=== PATIENT | male | born 1955 | race Caucasian/White ===

== ENCOUNTER 2019-09-24 11:04 | Emergency (ER) | payer OTHER ==
[~2019-09-24] VITALS: Ht 167.6 cm; Wt 78.5 kg
[2019-09-24 11:15] VITALS: BP 112/67
--- NOTE | 2019-09-24 11:18 | NUR ---
PT TAKEN TO BED 2.
--- NOTE | 2019-09-24 11:38 | NUR ---
C/O COUGH CONGESTION FEVER AND BODYACHES X 1 WEEK
[2019-09-24] MEDS ORDERED: AMLO10TA PO (12:20)
[2019-09-24] MEDS ORDERED: LIB5 PO (12:20)
[2019-09-24] MEDS ORDERED: OLME40TA11 PO (12:20)
[2019-09-24] MEDS ORDERED: ATOR20TA PO (12:20)
--- NOTE | 2019-09-24 12:29 | NUR ---
INFLUENZA SWAB COLLECTED AND HANDED TO JACK
[2019-09-24] MEDS ORDERED: AMOXIL/CLAVULANATE 875/125 MG 1 TAB PO ONE (13:25)
[2019-09-24 13:38] VITALS: BP 134/82
--- NOTE | 2019-09-24 13:38 | NUR ---
Patient discharged with v/s stable. Written and verbal after care instructions given and explained. Patient alert, oriented and verbalized understanding of instructions. Ambulatory with steady gait. All questions addressed prior to discharge. ID band removed. Patient advised to follow up with PMD. Rx of AUGMENTIN/PROMETHAZINE given. Patient educated on indication of medication including possible reaction and side effects. Opportunity to ask questions provided and answered.
== END 2019-09-24 13:38 | disposition home or self-care (01) ==
LOC: MED 11:04
DX: J18.9 Pneumonia, unspecified organism (principal); Z79.899 Other long term (current) drug therapy
CPT/HCPCS: 71045; 87804; 99284; Q0092

== ENCOUNTER 2019-09-29 15:21 | Emergency (ER) | payer OTHER ==
[~2019-09-29] VITALS: Ht 167.6 cm; Wt 78.9 kg
[~2019-09-29 15:21] MED LIST: AMLO10TA PO; ATOR20TA PO; LIB5 PO; OLME40TA11 PO
[2019-09-29 15:28] VITALS: BP 113/40
--- NOTE | 2019-09-29 15:35 | NUR ---
TRIAGE COMPLETE. RETURNED TO [facility] AWAITNG BED IN ED.
--- NOTE | 2019-09-29 15:42 | NUR ---
Reina nolan in EDM - 09/29/19 at 1543 by MED1 TRIAGE COMPLETE. RETURNED TO [facility] AWAIT[facility] BED IN ED.
--- NOTE | 2019-09-29 16:17 | NUR ---
64 YO MALE REFERRRED FROM CLINIC FOR PNA. PT WAS LAST SEEN IN ED ON THURSDAY. MEDS PRESCRIBED AT THAT TIME. A/O X4. NO PAIN.
[2019-09-29] MEDS ORDERED: ALBUTEROL SULFATE/IPRATROPIU 3 ML SOL IH ONE (16:25)
[2019-09-29] MEDS ORDERED: IBUPROFEN 600 MG TAB PO ONE (16:40)
--- NOTE | 2019-09-29 16:50 | NUR ---
PT TAKEN TO XRAY VIA WHEELCHAIR
[2019-09-29] MEDS ORDERED: NACL 0.9% 1,000 ML IV ONE ×2 (17:05→17:20)
[2019-09-29] MEDS ORDERED: LEVOFLOXACIN 750 MG/D5W PREMIX 150 ML IV ONE (17:05)
[2019-09-29 17:14] LABS: BASOPHILS % (AUTO) 0.1 % (0.0-2.0); EOSINOPHILS # (AUTO) 0.1 K/uL (0-0.4); EOSINOPHILS % (AUTO) 0.2 % (0.0-4.0); HEMATOCRIT 40.4 % (36-52); HEMOGLOBIN 13.8 g/dL (12.0-18.0); LYMPHOCYTES # (AUTO) 1.5 K/uL (2.0-11.5); LYMPHOCYTES % (AUTO) 6.1 % (20.5-51.1); MEAN CORPUSCULAR HEMOGLOBIN 31 pg (27-31); MEAN CORPUSCULAR HGB CONC 34 g/dL (33-37); MONOCYTES # (AUTO) 1.8 K/uL (0.8-1.0); MONOCYTES % (AUTO) 7.1 % (1.7-9.3); NEUTROPHILS # (AUTO) 21.9 K/uL (1.8-7.7); NEUTROPHILS % (AUTO) 86.5 % (42.2-75.2); PLATELET COUNT (AUTO) 362 K/uL (140-450); RED BLOOD CELL COUNT(AUTO) 4.44 MIL/uL (4.20-6.10); RED CELL DISTRIBUTION WIDTH 12.4 % (11.6-13.7)
[2019-09-29 17:17] LABS: WHITE BLOOD COUNT (AUTO) 25.3 K/uL (4.8-10.8)
[2019-09-29 17:34] LABS: ALBUMIN 2.3 g/dL (3.4-5.0); ANION GAP 11.6 (8-16); CREATININE 1.2 mg/dL (0.7-1.3); TOTAL BILIRUBIN 1.7 mg/dL (0.0-1.0)
[2019-09-29 17:39] LABS: POTASSIUM 2.6 mmol/L (3.5-5.1)
[2019-09-29] MEDS ORDERED: POTASSIUM CHLORIDE 10 MEQ TABER PO ONE (17:45)
[2019-09-29 17:56] LABS: APPEARANCE,URINE CLEAR (CLEAR); BILIRUBIN,URINE NEGATIVE (NEGATIVE); BLOOD, URINE NEGATIVE (NEGATIVE); COLOR,URINE YELLOW (YELLOW); LEUKOCYTE ESTERASE ,URINE NEGATIVE (NEGATIVE); NITRITE, URINE NEGATIVE (NEGATIVE); UGLUCOSE NEGATIVE (NEGATIVE)
--- NOTE | 2019-09-29 20:45 | NUR ---
SITTING UPRIGHT IN BED, AWAKE AND ALERT. RR EVEN AND UNLABORED. FAMILY MEMBER AT BEDSIDE. PT REMAINS ON MONITOR. VSS. WILL CONTINUE TO MONITOR.
--- NOTE | 2019-09-29 20:54 | NUR ---
AMBULATED TO RESTROOM WITH STEADY GAIT.
--- NOTE | 2019-09-29 21:15 | NUR ---
REPORT GIVEN TO MONAE JORGENSEN FOR CONTINUITY OF CARE
--- NOTE | 2019-09-29 21:16 | NUR ---
RECEIVED REPORT FROM JOSLYN WALLS. CONTINUE OF PT CARE AT THIS TIME.
--- NOTE | 2019-09-29 21:49 | NUR ---
REPORT CALLED JOSLYN BRADFORD AT [facility] FOR PICKUP 2HRS. PT MADE AWARE OF STATUS
--- NOTE | 2019-09-29 22:58 | NUR ---
SITTING IN BED, CALM AND PLEASANT. RR EVEN AND UNLABORED. NO C/O PAIN. WILL CONTINUE TO MONITOR
[2019-09-29 23:17] VITALS: BP 109/54
--- NOTE | 2019-09-29 23:18 | NUR ---
Patient to be transferred to [facility] . Is being transferred due to INSURANCE. Receiving facility has accepting physician and available space. ER physician has signed transfer form. Patient or responsible democrat has agreed to transfer and signed form. Patient belongings inventoried and will be sent with patient. Copy of nursing notes, lab reports, EKG, Physicians Orders and X-rays to be sent with patient. Report called to JOSLYN BRADFORD at receiving facility. [facility] ambulance service has been called for transfer. ETA is 10.
--- NOTE | 2019-09-30 13:09 | NUR ---
Late entry. Confirmed with RN that Levaquin IV completed at 191
== END 2019-09-29 23:17 | disposition short-term general hospital (02) ==
LOC: MED 15:21
DX: J18.9 Pneumonia, unspecified organism (principal); E87.6 Hypokalemia; E86.0 Dehydration; E87.1 Hypo-osmolality and hyponatremia; I10 Essential (primary) hypertension; Z79.899 Other long term (current) drug therapy
CPT/HCPCS: 36415; 71046; 80053; 81003; 83605; 83880; 85025; 87040; 87086; 87804; 93005; 94640; 96365; 99285; J1956; J7030; J7620; Q0092; 99284